=== PATIENT | male | born 1995 ===

== ENCOUNTER 2018-07-26 20:24 | Emergency (ER) | payer BC ==
--- NOTE | 2018-07-26 20:59 | UC ---
FLU HPI - HPI Summary HPI Summary: Patient presented to urgent care with 48 hours of progressive body aches, sore throat, ear fullness. Patient denies fevers but reports intermittent chills. Patient without a cough. Patient without a rash. Patient states he's been very fatigued. Patient's been taking DayQuil and NyQuil was short-term relief. Last her's dose around 7 PM. Patient did not go to classes today. Patient is a student and lives by himself in the department. Patient will without chest pain or shortness of breath. Patient without recent distance travel. Patient's medications reviewed this visit. MEdications reviewed this visit - History of Current Complaint Chief Complaint: UCRespiratory Stated Complaint: FLU SYMPTOMS Time Seen by Provider: 07/26/18 20:33 Hx Obtained From: Patient Pain Intensity: 5 - Allergy/Home Medications Allergies/Adverse Reactions: Allergies Allergy/AdvReac Type Severity Reaction Status Date / Time No Known Allergies Allergy Verified 07/26/18 20:50 Home Medications: Home Medications Valacyclovir HCl [Valacyclovir] 1,000 mg PO DAILY 07/26/18 [History Confirmed ] PMH/Surg Hx/FS Hx/Imm Hx Previously Healthy: Yes - Surgical History Surgical History: Yes Surgery Procedure, Year, and Place: appendectomy at 12 years - Family History Known Family History: Positive: Non-Contributory - Social History Lives: Dormitory/Roommates - apt - no roommate Alcohol Use: Weekly Substance Use Type: Marijuana Substance Use Comment - Amount & Last Used: occasionally Smoking Status (MU): Never Smoked Tobacco Review of Systems All Other Systems Reviewed And Are Negative: Yes Constitutional: Positive: Chills ENT: Positive: Sore Throat, Nasal Discharge, Sinus Congestion Cardiovascular: Positive: Negative Is Patient Immunocompromised?: No Physical Exam - Summary Physical Exam Summary: Vital Signs Reviewed: Yes A+Ox3, no distress, tired apperaing Eyes: Conjunctiva Clear, JEAN. EOM intact and full ENT: Hearing grossly normal TM x 2 clear, turbinates inflammed and boffy, + PND, mmoist, uvula midline, no exudate, + diffuse erythema of oropharynx Neck: Positive: Supple Respiratory: Positive: No respiratory distress, No accessory muscle use + CTA throughout no w/r Cardiovascular: RRR nl s1, s2 no m/r CBT <2 sec abd soft + BS nt/nd no guarding, no distension Musculoskeletal Exam: PRETTY x 4 without difficulty Strength Intact, ROM Intact Neurological: Positive: Alert, + sensation throughout Psychological: Positive: Normal Response To Family Skin: Positive: no rash, no ecchymosis Triage Information Reviewed: Yes Vital Signs: Initial Vital Signs Temp 98.1 F 07/26/18 20:42 Pulse 105 07/26/18 20:42 Resp 14 07/26/18 20:42 BP 120/65 07/26/18 20:42 Pulse Ox 98 07/26/18 20:42 Flu Course/Dx - Course Course Of Treatment: Patient presents to urgent care reporting 48 hours of progressive body aches sore throat ear pain congestion. Patient with chills no documented fever. Patient's been taking DayQuil and NyQuil with little improvement. Patient did drink today. Patient with decreased appetite. Patient concerned he may have the flu. On exam vital signs are stable. Patient appears tired. Patient with sinus congestion postnasal drip and erythema of the oropharynx. x-ray. Uvula midline. Influenza was negative. Strep swab was positive. Will start patient on amoxicillin. Discussed with patient secretion precautions, humidified air. Motrin/Tylenol. Patient also given prescription for Flonase given his postnasal drip. Patient declined offer to talk to mom or dad. Patient given notes for classes. Patient states understanding agreement with plan. Strict return precautions. - Differential Dx/Diagnosis Provider Diagnosis: Strep pharyngitis Discharge - Sign-Out/Discharge Documenting (check all that apply): Patient Departure All imaging exams completed and their final reports reviewed: No Studies - Discharge Plan Condition: Stable Disposition: HOME Prescriptions: Amoxicillin 500 mg PO BID #19 capsule Fluticasone NASAL SPRAY 50MCG* [Flonase NASAL SPRAY 50MCG*] 2 spray BOTH NARES DAILY #1 btl Patient Education Materials: Strep Throat (ED) Forms: *Gen. Provider Communication, *School Release Referrals: [facility] [Provider Group] Additional Instructions: - Stay well hydrated. Drink plenty of non-alcoholic, non-caffinated beverages - frequent sips of cold fluids will be soothing to your throat (popsicles, jello, ice cream, ice - Alternate ibuprofen (Advil, Motrin) 600mg and Tylenol 1000mg every 3 hours for pain or fever. Take with food. Do NOT take for more than 4-5 days. - These infections are spread by secretions - do NOT share eating or drinking utensils - clean items you share with other people such as cell phones, computer mouse, TV remote, computer tablets,etc. Once you have been on antibiotics for 2 days, change your toothbrush and your pillowcase. It may take several days before you are feeling better. - get plenty of restful sleep - humidify the air in the room where you sleep - boil water, run a hot steam shower, vaporizer, cups of water by heat register - okay to take over the counter decongestant and cough medication - use nasal spray as instructed - Okay to gargle and spit warm salt water every 4 hours as needed for pain - contact your doctor or return with questions or concerns - Billing Disposition and Condition Condition: STABLE Disposition: Home
[2018-07-26 21:03] LABS: Influenza A Molecular NEGATIVE (Negative); Influenza B Molecular NEGATIVE (Negative)
[2018-07-26] MEDS ORDERED: Amoxicillin PO (*) 500 MG CAP PO ONE (21:19)
== END 2018-07-26 21:30 | disposition home or self-care (01) ==
LOC: UCEAST 20:24
DX: J02.0 Streptococcal pharyngitis (principal); R53.83 Other fatigue; H92.09 Otalgia, unspecified ear; M79.10 Myalgia, unspecified site
CPT/HCPCS: 87651; 99202; A9270-GY; G0463